=== PATIENT | male | born 1970 | race Caucasian/White ===

== ENCOUNTER 2020-12-25 12:57 | Outpatient (RCR) | payer BC ==
[~2020-12-25 12:57] MED LIST: CPR250T PO; HYDR-1231 PO; METH27TA8 PO; TMSL.4C PO
== END 2021-02-03 16:00 | disposition home or self-care (01) ==
PROVIDERS: ATTEND Orthopaedic Surgery Orthopaedic Trauma
DX: M47.812 Spondylosis without myelopathy or radiculopathy, cervical region (principal)

== ENCOUNTER 2021-07-20 06:00 | Emergency (ER) | payer BC ==
[~2021-07-20] VITALS: Ht 172.7 cm; Wt 93.0 kg
--- NOTE | 2021-07-20 06:43 | ED Back Pain ---
General Stated Complaint: NECK & BACK PAIN Source of Information: Patient Exam Limitations: No Limitations History of Present Illness Date Seen by Provider: Jul 20, 2021 Time Seen by Provider: 06:10 Initial Comments Patient reports ER by private conveyance for nontraumatic neck and upper back pain with numbness radiating down his left arm. He has been dealing with this and a bulging disc since December 2020. He did a course of physical therapy and discontinued it because he was feeling better. He relates the last few days it has gotten worse and he restarted physical therapy. Every morning that he wakes up he is in a tremendous amount of pain. He has scheduled MRI on the as well as an appointment with his surgeon at [address] on the . He has been sending imaging up to [facility] for referral. He has not had any surgery on it. He has naproxen, baclofen, and did a course of steroids about [address] Fernández his PCP. No falls, loss of control of bowel or bladder, saddle anesthesia. Allergies and Home Medications Allergies Coded Allergies: clarithromycin (Verified Allergy, Unknown, 07/20/21) Patient Home Medication List Home Medication List Reviewed: Yes Ciprofloxacin Hcl (Cipro) 250 Mg Tablet, 250 MG PO BID Prescribed by: LEELEE RASCON on 12/20/13 1441 Hydrocodone Bit/Acetaminophen (Hydrocodone-Apap 5-325 Tablet) 1 Tab Tablet, 1-2 TAB PO Q6H PRN for PAIN Prescribed by: LEELEE RASCON on 12/20/13 1441 Hydrocodone/Acetaminophen (Hydrocodone-Acetamin 5-325 mg) 1 Each Tablet, 1 TAB PO Q6H PRN for PAIN-MODERATE (5-7) Prescribed by: BONNIE BELTRÁN on 07/20/21 0648 Methylphenidate Hcl (Methylphenidate Hcl) 27 Mg Tab.er.24, 27 MG PO DAILY, (Reported) Entered as Reported by: LAUREN RANGEL on 12/20/13 1320 Prednisone (Prednisone) 20 Mg Tab, 60 MG PO DAILY Prescribed by: BONNIE BELTRÁN on 07/20/21 0647 Tamsulosin Hcl (Flomax) 0.4 Mg Cap, 0.4 MG PO DAILY Prescribed by: LEELEE RASCON on 12/20/13 1441 Review of Systems Constitutional: No chills, No diaphoresis EENTM: No ear discharge, No ear pain Respiratory: No cough, No short of breath Cardiovascular: No chest pain, No edema Gastrointestinal: No abdominal pain, No nausea, No vomiting Genitourinary: No discharge, No dysuria Musculoskeletal: see HPI All Other Systems Reviewed Negative Unless Noted: Yes Past Ukxgdgh-Pgkxld-Iulkdr Hx Patient Social History Tobacco Use?: No Use of E-Cig and/or Vaping dev: No Substance use?: No Past Medical History Reproductive Disorders: No Physical Exam Vital Signs Vital Signs - First Documented 07/20/21 06:20 Temp 36.7 Pulse 79 Resp 16 B/P (MAP) 148/102 (117) Pulse Ox 99 O2 Delivery Room Air Capillary Refill : Height, Weight, BMI Height: 5'8" Weight: 170lbs. oz. 77.994346af; BMI Method:Stated General Appearance: WD/WN, Mild Distress HEENT: PERRL/EOMI, Pharynx Normal, Moist Mucous Membranes Neck: Full Range of Motion, Normal Inspection, Non Tender, Supple Cardiovascular: Regular Rate, Rhythm, No Edema, Normal Peripheral Pulses Respiratory: No Accessory Muscle Use, No Respiratory Distress Neurologic/Psychiatric: Alert, Oriented x3, Other (Paresthesias in his index finger and middle finger) Progress/Results/Core Measures Results/Orders My Orders Orders - BONNIE BELTRÁN Ketorolac Injection (Toradol Injection) (07/20/21 06:45) Orphenadrine Inj (Ed Only) (Norflex Inje (07/20/21 06:45) Methylprednisolone Sod Succ (Solu-Medrol (07/20/21 06:45) Vital Signs/I&O 07/20/21 06:20 Temp 36.7 Pulse 79 Resp 16 B/P (MAP) 148/102 (117) Pulse Ox 99 O2 Delivery Room Air Progress Progress Note : Time: 06:41 Progress Note Patient has a known bulging disc in his low cervical spine. No imaging was done here to compare to. This is stable since December and considered chronic. We can address his discomfort and start him on a course of steroids. There is no new findings or emergent findings to suggest advanced imaging would be of benefit today. We have encouraged him to follow-up with his primary care doctor or surgeon for continued management of symptoms and discuss treatment courses. Norflex, Toradol and Solu-Medrol. Departure Impression Primary Impression: Cervical radiculopathy due to intervertebral disc disorder Disposition: 01 HOME, SELF-CARE Condition: Stable Departure-Patient Inst. Decision time for Depature: 06:43 Referrals: LAURENCE FERNÁNDEZ MD (PCP/Family) Primary Care Physician Patient Instructions: Radiculopathy (DC) Add. Discharge Instructions: Keep your follow-up appointment with your surgeon. Keep your follow-up with physical therapy. If you have new symptoms in your legs such as falls due to weakness, numbness between your legs, loss of control of bowel or bladder or other worrisome symptoms then I would encourage you to return to the nearest ER. Continue taking her medications as prescribed. For severe breakthrough pain keeping you from being functional you may take 1 tablet of hydrocodone every 6 hours as necessary. Hydrocodone does cause constipation and should be used with MiraLAX or Colace to stay regular. 3 tablets of prednisone for the next 3 days. Then take 2 tablets of prednisone for 3 days. Finally take 1 tablet of prednisone for the last 3 days. Scripts Prednisone (Prednisone) 20 Mg Tab 60 MG PO DAILY for 9 Days, #18 TAB 0 Refills 3 tab x 3 days 2 tab x 3 days 1 tab x 3 days Prov: BONNIE BELTRÁN 07/20/21 Hydrocodone/Acetaminophen (Hydrocodone-Acetamin 5-325 mg) 1 Each Tablet 1 TAB PO Q6H PRN for PAIN-MODERATE (5-7), #15 TAB 0 Refills Prov: BONNIE BELTRÁN 07/20/21 BONNIE BELTRÁN Jul 20, 2021 06:43
[2021-07-20] MEDS ORDERED: methylPREDNISolone 125 MG (Solu-MEDROL) VIAL IM ONE (06:45)
[2021-07-20] MEDS ORDERED: ORPHENADRINE 60 MG/2 ML (NORFLEX) AMP (ED ONLY) IM ONE (06:45)
[2021-07-20] MEDS ORDERED: KETOROLAC 60 MG/2 ML VIAL IM ONE (06:45)
[2021-07-20] MEDS ORDERED: ACHD5005 PO (06:47)
[2021-07-20] MEDS ORDERED: PRD20T PO (06:47)
[2021-07-20 07:16] VITALS: BP 134/89
== END 2021-07-20 07:16 | disposition home or self-care (01) ==
LOC: EDUNIT# 06:00 → ER 06:06
DX: M54.12 Radiculopathy, cervical region (principal)
CPT/HCPCS: 99284

== ENCOUNTER 2021-08-27 08:36 | Outpatient (RCR) | payer BC ==
[~2021-08-27 08:36] MED LIST changes: +ACHD5005 PO; +PRD20T PO
== END 2021-08-27 09:06 | disposition home or self-care (01) ==
DX: M54.2 Cervicalgia (principal)